=== PATIENT | female | born 1930 | race Caucasian/White ===

== ENCOUNTER 2017-06-15 12:45 | Emergency (ER) | payer MEDICARE ==
[2017-06-15 12:45] VITALS: BMI 22.3
--- NOTE | 2017-06-15 13:58 | C.PDOC ---
History Of Present Illness 86 yo female, presents sp fall. as per pt, states she tripped on bag, contrary to triage, pt denies any nausea vomiting cold sweats. info obtained via covered button maker box, and later tech bedside. pt states she tripped on a piece of luggage when someone came to door. pt c/o of pain to head, nose, and left arm, right knee. no other injury or complaint. Time Seen by Provider: 06/15/17 13:28 Chief Complaint (Nursing): Abdominal Pain Past Medical History Reviewed: Historical Data, Nursing Documentation, Vital Signs Vital Signs: Last Vital Signs Temp 97.9 F 06/15/17 16:00 Pulse 60 06/15/17 16:00 Resp 16 06/15/17 16:00 BP 102/69 06/15/17 16:00 Pulse Ox 96 06/15/17 23:30 - Medical History PMH: Arthritis, Fractures (left foot), HTN, Hypothyroidism Denies: Chronic Kidney Disease Surgical History: Cholecystectomy - [facility] Procedures INITIAL INSERT TRANS LEADS INTO [employer]EN[employer]ICLE (04/03/14) INITIAL INSERTION OF DUAL-CHAMBER DEVICE (04/03/14) VACCINATION NEC (04/03/14) Family History: States: Unknown Family Hx - Social History Hx Alcohol Use: No Hx Substance Use: No - Immunization History Hx Tetanus Toxoid Vaccination: No Hx Influenza Vaccination: Yes Hx Pneumococcal Vaccination: No Review Of Systems Except As Marked, All Systems Reviewed And Found Negative. Gastrointestinal: Positive for: Nausea. Negative for: Vomiting Musculoskeletal: Positive for: Arm Pain, Leg Pain Physical Exam - Physical Exam Appears: Well, No Acute Distress Skin: Normal Color, Warm, Dry Head: Normacephalic, Other ((+)hematoma to forehead/nose) Eye(s): bilateral: Normal Inspection, PERRL, EOMI Nose: Normal Throat: Normal Neck: Normal Cardiovascular: Rhythm Regular Respiratory: Normal Breath Sounds Gastrointestinal/Abdominal: Normal Exam Back: Normal Inspection Extremity: Tenderness ((+)left elbow, right knee), No Deformity, Swelling ((+) elbow, right knee) ED Course And Treatment O2 Sat by Pulse Oximetry: 96 Medical Decision Making Medical Decision Making: mechanical fall. - r/o fx. bleed xr shows elbow fracture. case discussed with dr lisa, request posterior splint outpt f/u. pt verbalizes feels comfortable with dc. pt again endorses "she tripped on luggage". Disposition - Disposition Referrals: [facility] [Outside] [facility] [Outside] [facility] [Outside] [facility] [Outside] Johanny Lisa MD [Staff Provider] - Disposition: HOME/ ROUTINE Disposition Time: 15:49 Condition: STABLE Additional Instructions: please see specialist. return to er with worsening symptoms or concerns. Prescriptions: Naproxen [Naprosyn] 500 mg PO BID PRN #14 tablet PRN Reason: Pain, Mild (1-3) Instructions: Elbow Fracture in Adults (ED) Forms: [employer] (Upper Sorbian) Print Language: PERSIAN - Clinical Impression Clinical Impression: Elbow fracture, Fall, Head injury
--- NOTE | 2017-06-15 14:51 | RAD ---
PROCEDURE: Radiographs of the left humerus. HISTORY: trauma COMPARISON: None. FINDINGS: BONES: A distal lateral humeral fracture not clearly depicted on this image note is made that the patient also has a subsequent elbow study likely a better depicting the fracture type and its characteristics para acromioclavicular joint space narrowing in osseous hypertrophy humeral head subcortical cystic changes. SOFT TISSUES: Soft tissue swelling surrounding the left elbow. OTHER FINDINGS: Partially visualize left pacemaker leads IMPRESSION: Distal lateral humeral fracture probably involving the capitellum.
--- NOTE | 2017-06-15 14:53 | RAD ---
PROCEDURE: Radiographs of the left elbow. HISTORY: trauma COMPARISON: No prior. FINDINGS: BONES: A left capitellar fracture with superior and anterior displacement of some of this fracture fragment is suspect. Elbow joint fracture extension JOINTS: Fracture extension to the joint SOFT TISSUES: Marked surrounding soft tissue swelling JOINT EFFUSION: Large anterior elbow joint effusion OTHER FINDINGS: None IMPRESSION: Displaced capitellar fracture with elbow joint extension. Large elbow joint effusion. Comments consider CT of the elbow for fracture mapping and full assessment of potential additional fracture fragments
--- NOTE | 2017-06-15 14:55 | RAD ---
PROCEDURE: Left Wrist Radiographs. HISTORY: trauma COMPARISON: None. FINDINGS: BONES: . No fracture. JOINTS: First carpal metacarpal joint space narrowing and radiocarpal joint space narrowing. No dislocation SOFT TISSUES: Normal. OTHER FINDINGS: None. IMPRESSION: No fracture or dislocation at wrist level. Degenerative joint space narrowing
--- NOTE | 2017-06-15 14:56 | RAD ---
PROCEDURE: Radiographs of the Left Forearm HISTORY: trauma COMPARISON: None available. TECHNIQUE: Frontal and lateral views obtained. FINDINGS: BONES: The lateral distal humeral patellar fracture with proximal and anterior fracture displacement is renoted. Elbow joint effusion here. No additional radial or ulnar fractures appreciated. JOINT SPACES: Unremarkable. OTHER FINDINGS: None. IMPRESSION: Capitellar fracture superior and anterior displacement. Fracture extension to the elbow joint.
--- NOTE | 2017-06-15 15:00 | RAD ---
PROCEDURE: Right Knee Radiographs. HISTORY: trauma COMPARISON: None. FINDINGS: BONES: . No fracture. Tibial spine spurring. JOINTS: Mild medial femoral tibial joint space narrowing -mild osteoarthrosis JOINT EFFUSION: None. OTHER FINDINGS: None. IMPRESSION: Mild senescent changes. No fracture or dislocation.
--- NOTE | 2017-06-15 15:02 | RAD ---
PROCEDURE: CHEST RADIOGRAPH, 1 VIEW HISTORY: chest pain COMPARISON: None available. FINDINGS: LUNGS: No interval infiltrate PLEURA: No pneumothorax or pleural fluid seen. CARDIOVASCULAR: Mild cardiomegaly. Two lead pacemaker device in place as before. Tortuous ectatic thoracic aorta - contour similar OSSEOUS STRUCTURES: Bilateral acromioclavicular and glenohumeral joint arthrosis. VISUALIZED UPPER ABDOMEN: Normal. OTHER FINDINGS: None. IMPRESSION: No active disease.
--- NOTE | 2017-06-15 15:04 | RAD ---
PROCEDURE: Radiographs of the pelvis. HISTORY: fall COMPARISON: None. FINDINGS: BONES: Pelvic Bones: Unremarkable. Hips: No fracture. Bilateral superolateral hip joint space narrowing with bilateral superior acetabular spurring -right greater than left. . JOINTS: Sacroiliac Joints: Unremarkable. Pubic Symphysis: Hypertrophic osseous arthrosis Left L4-5 facet hypertrophic arthrosis. OTHER FINDINGS: Multiple left gluteal injection granulomas Limited evaluation of the superior left sacral wing -cystic mottled appearance here noted either intrinsic to the sacral bone or 2 to overlying bowel gas and redundant rectosigmoid colon loops. IMPRESSION: No hip fracture. Bilateral hip arthrosis right greater
--- NOTE | 2017-06-15 15:26 | CT ---
PROCEDURE: CT HEAD WITHOUT CONTRAST. HISTORY: trauma COMPARISON: None available. TECHNIQUE: Axial computed tomography images were obtained through the head/brain without intravenous contrast. Radiation dose: Total exam DLP = 873.70 mGy-cm. This CT exam was performed using one or more of the following dose reduction techniques: Automated exposure control, adjustment of the mA and/or kV according to patient size, and/or use of iterative reconstruction technique. FINDINGS: HEMORRHAGE: No intracranial hemorrhage. BRAIN: Diffuse atrophy with prominence of the ventricles and sulci noted. No mass effect or edema. Thin curvilinear calcification along the inner table of the left inner table. Scattered periventricular and subcortical white matter hypodensities, which are nonspecific, but often seen with chronic microvascular ischemic disease. Please note that MRI with diffusion imaging is more sensitive in the detection of acute ischemic event. VENTRICLES: No hydrocephalus. CALVARIUM: No acute fracture. PARANASAL SINUSES: Unremarkable as visualized. No significant inflammatory changes. MASTOID AIR CELLS: Unremarkable as visualized. No inflammatory changes. OTHER FINDINGS: Small frontal scalp hematoma. IMPRESSION: Small frontal scalp hematoma. Generalized atrophy. Nonspecific white matter changes.
--- NOTE | 2017-06-15 15:49 | CT ---
CT maxillofacial bones without IV contrast Indication: Trauma Comparison: Head CT 06/15/17 Technique: Axial computed tomography images were obtained of the maxillofacial bones without the use of intravenous contrast. Coronal and sagittal reformatted images were generated and reviewed. This CT exam was performed using 1 or more of the falling dose reduction techniques: Automated exposure control, adjustment of the MAA and/or kV according to patient size, and/or use of iterative reconstruction technique. Radiation dose: Total exam DLP = 794.55 MGy-cm. Findings: The facial bones appear intact without acute displaced fracture. The orbits appear unremarkable. The temporomandibular joints appear located. The mastoid air cells appear clear. The paranasal sinuses appear clear without air-fluid levels. Small frontal scalp hematoma. Osseous demineralization. Multilevel degenerative changes of the cervical spine. Impression: No acute displaced fracture identified. Small frontal scalp hematoma.
[2017-06-15 16:17] VITALS: BP 102/69; PULSE 60; RESP 16; TEMP 97.9
[2017-06-15 23:31] VITALS: O2SAT 96
== END 2017-06-15 17:01 | disposition home or self-care (01) ==
LOC: C.ER 12:45
DX: S09.90XA Unspecified injury of head, initial encounter (principal); S42.402A Unspecified fracture of lower end of left humerus, initial encounter for closed fracture; W01.0XXA Fall on same level from slipping, tripping and stumbling without subsequent striking against object, initial encounter; Y93.89 Activity, other specified; Y92.89 Other specified places as the place of occurrence of the external cause; I10 Essential (primary) hypertension; Z23 Encounter for immunization

== ENCOUNTER 2017-06-24 17:49 | Emergency (ER) | payer MEDICARE ==
[2017-06-24 17:54] VITALS: BMI 24.2
[2017-06-24 18:50] LABS: BASO % 0.9 % (0.0-2.0); EOS # 0.1 K/uL (0.0-0.7); EOS % 2.4 % (0.0-4.0); HEMATOCRIT 29.3 % (34.0-47.0); LYMPH # 0.9 K/uL (1.0-4.3); LYMPH % 25.9 % (20.0-40.0); MEAN CELL VOLUME 94.8 fL (81.0-99.0); MEAN CORPUSCULAR HEMOGLOBIN 32.9 pg (27.0-31.0); MEAN CORPUSCULAR HGB CONC 34.7 g/dL (33.0-37.0); MEAN PLATELET VOLUME 7.9 fL (7.2-11.7); MONO # 0.4 K/uL (0.0-0.8); NRBC % 0.1 % (0.0-2.0); RED CELL DISTRIBUTION WIDTH 14.4 % (11.5-14.5); WHITE BLOOD COUNT 3.6 K/uL (4.8-10.8)
[2017-06-24 18:54] LABS: CHLORIDE 98 mmol/L (98-107); SODIUM 131 mmol/L (132-148)
[2017-06-24 18:55] LABS: POTASSIUM 4.2 mmol/L (3.6-5.2)
[2017-06-24 18:57] LABS: ALB/GLOB RATIO 1.1 (1.0-2.1); ALKALINE PHOSPHATASE 78 U/L (38-126); ALT/SGPT 21 U/L (9-52); AST/SGOT 21 U/L (14-36); BILIRUBIN,TOTAL 1.2 mg/dL (0.2-1.3); BLOOD UREA NITROGEN 18 mg/dL (7-17); CARBON DIOXIDE 23 mmol/L (22-30); GFR AFRICAN-AMERICAN 51; GLUCOSE,RANDOM 94 mg/dL (65-105); TOTAL PROTEIN 7.2 g/dL (6.3-8.3)
[2017-06-24 18:58] LABS: CALCIUM 8.6 mg/dl (8.6-10.4); RBC URINE 26 /hpf (0-3); TRANSITIONAL EPITHIAL < 1 /hpf (0-3); URINE BACTERIA FEW (<OCC); URINE BILIRUBIN NEGATIVE (NEGATIVE); URINE BLOOD 1+ (NEGATIVE); URINE CALCIUM OXALATE CRYSTALS OCC /hpf (<OCC); URINE COLOR Yellow (YELLOW); URINE GLUCOSE (UA) NORMAL (Normal); URINE KETONE NEGATIVE (NEGATIVE); URINE LEUKOCYTE ESTERASE 3+ Leu/uL (Negative); URINE PROTEIN NEGATIVE (NEGATIVE); URINE UROBILINOGEN NORMAL mg/dL (0.2-1.0); WBC URINE 272 /hpf (0-5)
[2017-06-24 19:29] LABS: THYROID STIMULATING HORMONE 2.55 mIU/L (0.46-4.68)
--- NOTE | 2017-06-24 19:47 | C.PDOC ---
History Of Present Illness 86 year old female presents to the ED for evaluation of generalized weakness associated with decreased PO intake and nausea which began around 2 days ago. She denies fever, chills, nausea, dysuria, hematuria. Time Seen by Provider: 06/24/17 18:20 Chief Complaint (Nursing): Weakness/Neurological Deficit History Per: Patient History/Exam Limitations: no limitations Onset/Duration Of Symptoms: Days (2) Current Symptoms Are (Timing): Still Present Seizure Or Post-ictal Symptoms: None Additional History Per: Patient Past Medical History Reviewed: Historical Data, Nursing Documentation, Vital Signs Vital Signs: Last Vital Signs Temp 97.8 F 06/24/17 20:24 Pulse 69 06/24/17 20:24 Resp 20 06/24/17 20:24 BP 118/70 06/24/17 20:24 Pulse Ox 98 06/24/17 20:24 - Medical History PMH: Arthritis, Fractures (left foot), HTN, Hypothyroidism Denies: Chronic Kidney Disease Surgical History: Cholecystectomy, Pacemaker - [facility] Procedures INITIAL INSERT TRANS LEADS INTO [employer]LE (04/03/14) INITIAL INSERTION OF DUAL-CHAMBER DEVICE (04/03/14) VACCINATION NEC (04/03/14) Family History: States: Unknown Family Hx - Social History Hx Alcohol Use: No Hx Substance Use: No - Immunization History Hx Tetanus Toxoid Vaccination: No Hx Influenza Vaccination: Yes (2017) Hx Pneumococcal Vaccination: No Review Of Systems Constitutional: Positive for: Weakness, Other (decreased PO intake ). Negative for: Fever, Chills Gastrointestinal: Positive for: Nausea. Negative for: Vomiting Genitourinary: Negative for: Dysuria, Hematuria Physical Exam - Physical Exam Appears: Non-toxic, No Acute Distress Skin: Normal Color, Warm, Dry Head: Atraumatic, Normacephalic Eye(s): bilateral: Normal Inspection Oral Mucosa: Moist Neck: Supple Chest: Symmetrical, No Deformity, No Tenderness Cardiovascular: Rhythm Regular, No Murmur Respiratory: Normal Breath Sounds, No Rales, No Rhonchi, No Wheezing Extremity: Normal ROM, Capillary Refill (less than 2 seconds ) Neurological/Psych: Oriented x3, Normal Speech, Normal Cognition Gait: Steady ED Course And Treatment - Laboratory Results Result Diagrams: 06/24/17 18:43 06/24/17 18:43 O2 Sat by Pulse Oximetry: 99 (on RA) Pulse Ox Interpretation: Normal Progress Note: labs, EKG, CXR ordered and reviewed. Patient received Macrobid PO. On reassessment, patient is resting comfortably, showing no signs of distress and is stable for discharge. Patient is advised to follow up with her PMD within 1-2 days for further evaluation. Disposition - Disposition Referrals: Christina Rolle, [Non-Staff] - Disposition: HOME/ ROUTINE Disposition Time: 19:30 Condition: IMPROVED Additional Instructions: Thank you for letting us take care of you today. Your provider was Dr. Mendoza. You were treated for urinary tract infection. The emergency medical care you received today was directed at your acute symptoms. If you were prescribed any medication, please fill it and take as directed. It may take several days for your symptoms to resolve. Return to the Emergency Department if your symptoms worsen, do not improve, or if you have any other problems. Please contact your doctor or call one of the physicians/clinics you have been referred to that are listed on the Patient Visit Information form that is included in your discharge packet. Bring any paperwork you were given at discharge with you along with any medications you are taking to your follow up visit. Our treatment cannot replace ongoing medical care by a primary care provider (PCP) outside of the emergency department. Thank you for allowing the [employer] [facility] team to be part of your care today. Follow up with your doctor in 2-3 days for re-evaluation and further management. Prescriptions: Nitrofurantoin Macrocrystals [Macrobid] 100 mg PO BID #10 cap Instructions: Urinary Tract Infection in Women (ED) Forms: [employer] (Austrian) - Clinical Impression Clinical Impression: UTI (urinary tract infection) - Scribe Statement The provider has reviewed the documentation as recorded by the Scribe (Jyoti Simpson) Provider Attestation: All medical record entries made by the Scribe were at my direction and personally dictated by me. I have reviewed the chart and agree that the record accurately reflects my personal performance of the history, physical exam, medical decision making, and the department course for this patient. I have also personally directed, reviewed, and agree with the discharge instructions and disposition.
[2017-06-24 20:25] VITALS: BP 118/70; PULSE 69; RESP 20; TEMP 97.8
[2017-06-25 00:27] VITALS: O2SAT 99
--- NOTE | 2017-06-25 08:15 | RAD ---
PROCEDURE: CHEST RADIOGRAPH, 1 VIEW HISTORY: r/o infiltrate COMPARISON: Portable chest 06/15/2017. FINDINGS: Bipolar permanent cardiac pacemaker again identified. LUNGS: Clear. PLEURA: No pneumothorax or pleural fluid seen. CARDIOVASCULAR: Stable cardiomediastinal silhouette. OSSEOUS STRUCTURES: No significant abnormalities. VISUALIZED UPPER ABDOMEN: Normal. OTHER FINDINGS: None. IMPRESSION: No definite interval acute cardiopulmonary is appreciable. Pacemaker again noted placed.
== END 2017-06-24 20:25 | disposition home or self-care (01) ==
LOC: C.ER 17:49
DX: N39.0 Urinary tract infection, site not specified (principal)

== ENCOUNTER 2017-07-05 18:14 | Emergency (ER) | payer MEDICARE ==
[2017-07-05 18:14] VITALS: BMI 24.2
[2017-07-05] MEDS ORDERED: Sodium Chloride 0.9% 1,000 ML IV ONE (19:16)
--- NOTE | 2017-07-05 19:16 | C.PDOC ---
History Of Present Illness 86 year old female who presents to the ER with a complaint of a dull, aching right flank pain radiating to the groin; associated with nausea and one episode of vomiting this morning. Patient reports she was recently seen by her PMD and treated for UTI. Denies fever or chills. Time Seen by Provider: 07/05/17 19:15 Chief Complaint (Nursing): Female Genitourinary History Per: Patient History/Exam Limitations: no limitations Onset/Duration Of Symptoms: Hrs Current Symptoms Are (Timing): Still Present Severity: Mild Pain Scale Rating Of: 4 Quality Of Discomfort: Dull, Aching Associated Symptoms: Nausea, Vomiting. denies: Fever, Chills Alleviating Factors: None Recent travel outside of the [place]: No Abnormal Vaginal Bleeding: No Past Medical History Reviewed: Historical Data, Nursing Documentation, Vital Signs Vital Signs: Last Vital Signs Temp 98.2 F 07/05/17 18:34 Pulse 60 07/05/17 20:50 Resp 18 07/05/17 20:50 BP 145/66 07/05/17 20:50 Pulse Ox 98 07/05/17 20:50 - Medical History PMH: Arthritis, Depression, Fractures (left foot), HTN, Hypothyroidism Surgical History: Cholecystectomy, Pacemaker - [facility] Procedures INITIAL INSERT TRANS LEADS INTO [employer] VENTRICLE (04/03/14) INITIAL INSERTION OF DUAL-CHAMBER DEVICE (04/03/14) VACCINATION NEC (04/03/14) Family History: States: No Known Family Hx - Social History Hx Alcohol Use: No Hx Substance Use: No - Immunization History Hx Tetanus Toxoid Vaccination: No Hx Influenza Vaccination: Yes (2016) Hx Pneumococcal Vaccination: No Review Of Systems Constitutional: Negative for: Fever, Chills Gastrointestinal: Positive for: Nausea, Vomiting Musculoskeletal: Positive for: Back Pain (right flank) Physical Exam - Physical Exam Appears: Non-toxic Skin: Warm, Dry Head: Normacephalic Oral Mucosa: Moist Chest: Symmetrical, No Tenderness Cardiovascular: Rhythm Regular Respiratory: No Rales, No Rhonchi, No Wheezing Gastrointestinal/Abdominal: Bowel Sounds (Good), Soft, No Tenderness Back: Other (Right flank tenderness) Extremity: Other (Cast over left arm) Neurological/Psych: Oriented x3 ED Course And Treatment - Laboratory Results Result Diagrams: 07/05/17 17:43 07/05/17 17:43 O2 Sat by Pulse Oximetry: 97 (Room air) Pulse Ox Interpretation: Normal Progress Note: Blood work and urinalysis ordered. IV fluids administered. Reevaluation Time: 22:35 Disposition Counseled Patient/Family Regarding: Studies Performed, Diagnosis, Need For Followup, Rx Given - Disposition Referrals: Rubén Padgett MD [Staff Provider] - Disposition: HOME/ ROUTINE Disposition Time: 19:16 Condition: FAIR Prescriptions: Ciprofloxacin [Cipro] 1 tab PO BID #14 tab Instructions: Urinary Tract Infection in Women (ED), Back Pain (ED), Back Exercises (ED) Forms: [employer] (Amharic) Print Language: HUNGARIAN - Clinical Impression Clinical Impression: Back pain, UTI (urinary tract infection) - Scribe Statement The provider has reviewed the documentation as recorded by the Scribe Fei Guaman All medical record entries made by the Scribe were at my direction and personally dictated by me. I have reviewed the chart and agree that the record accurately reflects my personal performance of the history, physical exam, medical decision making, and the department course for this patient. I have also personally directed, reviewed, and agree with the discharge instructions and disposition.
[2017-07-05 19:33] LABS: RBC URINE < 1 /hpf (0-3); TRANSITIONAL EPITHIAL < 1 /hpf (0-3); URINE BACTERIA RARE (<OCC); URINE BILIRUBIN NEGATIVE (NEGATIVE); URINE BLOOD NEGATIVE (NEGATIVE); URINE COLOR Yellow (YELLOW); URINE GLUCOSE (UA) NORMAL (Normal); URINE KETONE NEGATIVE (NEGATIVE); URINE LEUKOCYTE ESTERASE 1+ Leu/uL (Negative); URINE PROTEIN NEGATIVE (NEGATIVE); URINE UROBILINOGEN NORMAL mg/dL (0.2-1.0); WBC URINE 6 /hpf (0-5)
[2017-07-05 19:48] LABS: BASO # 0.1 K/uL (0.0-0.2); BASO % 1.1 % (0.0-2.0); EOS # 0.1 K/uL (0.0-0.7); EOS % 2.2 % (0.0-4.0); HEMATOCRIT 33.6 % (34.0-47.0); LYMPH # 1.3 K/uL (1.0-4.3); LYMPH % 24.1 % (20.0-40.0); MEAN CELL VOLUME 96.1 fL (81.0-99.0); MEAN CORPUSCULAR HEMOGLOBIN 32.6 pg (27.0-31.0); MEAN PLATELET VOLUME 8.5 fL (7.2-11.7); MONO # 0.5 K/uL (0.0-0.8); MONO % 8.7 % (0.0-10.0); RED CELL DISTRIBUTION WIDTH 14.9 % (11.5-14.5)
[2017-07-05 19:49] LABS: WHITE BLOOD COUNT 5.5 K/uL (4.8-10.8)
[2017-07-05 19:58] LABS: POTASSIUM 5.3 mmol/L (3.6-5.2)
[2017-07-05 19:59] LABS: BILIRUBIN,TOTAL 1.7 mg/dL (0.2-1.3)
[2017-07-05 20:00] LABS: ALB/GLOB RATIO 1.1 (1.0-2.1); CALCIUM 8.6 mg/dl (8.6-10.4); TOTAL PROTEIN 8.3 g/dL (6.3-8.3)
[2017-07-05 20:10] LABS: VENOUS BLOOD GAS PCO2 47 mmHg (40-60); VENOUS BLOOD PH 7.38 (7.32-7.43)
[2017-07-05] MEDS ORDERED: Iodixanol 320 MG/ML 100 ML BOTTLE IV ONE (20:46)
[2017-07-05 20:50] VITALS: RESP 18
--- NOTE | 2017-07-05 22:06 | CT ---
EXAM: CT Abdomen and Pelvis With Intravenous Contrast EXAM DATE/TIME: 07/05/2017 8:03 PM CLINICAL HISTORY: 86 years old, female; Pain; Abdominal pain; Flank; Right lower quadrant (rlq); Additional info: Right flank pain, HX of uti TECHNIQUE: Axial computed tomography images of the abdomen and pelvis with intravenous contrast. All CT scans at this facility use one or more dose reduction techniques, viz.: automated exposure control; ma/kV adjustment per patient size (including targeted exams where dose is matched to indication; i.e. head); or iterative reconstruction technique. Coronal and sagittal reformatted images were created and reviewed. CONTRAST: 100 mL of VISIPAQUE 320 administered intravenously. COMPARISON: There are no prior studies for comparison. FINDINGS: Lower thorax: Lung bases are hyperinflated. There is minimal scarring at the lung bases The heart is enlarged.There is streak artifact from pacemaker leads. Distal thoracic aorta is tortuous. There are vascular calcifications. There is a small hiatal hernia. ABDOMEN: Liver: unremarkable Gallbladder and bile ducts: Gallbladder is surgically absent.There is prominence of the common duct. Pancreas: Pancreas is mildly atrophic. Spleen: unremarkable Adrenals: unremarkable Kidneys and ureters: Kidneys are mildly atrophic with focal areas of scarring. There is a dystrophic calcification in the right kidney. There are bilateral renal cysts. There is no pelvocaliectasis or ureterectasis. Stomach and bowel: Stomach is almost completely empty. Rotation is normal. Small bowel is mildly distended with fluid and air. There is mild small bowel wall and fold thickening. There is no obstruction. There is mild terminal ileal wall thickening. Appendix is not visualized.There is no pericecal inflammation. Colon is incompletely distended which limits evaluation. Appendix: See above. PELVIS: Bladder: Bladder is partially distended. There is mild bladder wall thickening. Reproductive: Uterus is absent. There are no adnexal masses. ABDOMEN and PELVIS: Intraperitoneal space: Bones/joints: Bony structures are osteopenic. There are degenerative changes at all levels. There is compression fracture at L3. There is a convex left lumbar curve. Soft tissues: There is a small fat containing umbilical hernia. There is bruising in the soft tissues of the right hip. There are calcified granulomas in the buttocks. Vasculature: Aorta is mildly tortuous. There are vascular calcifications. Lymph nodes: There are no pathologically enlarged para-aortic nodes. IMPRESSION: Renal cysts and scarring, no obstructing renal or ureteral stones or hydronephrosis; bladder wall thickening, underdistention versus inflammation; nonvisualization the appendix with no CT findings of appendicitis; minimal bruising in the soft tissues at the right hip; possible enteritis, no bowel obstruction; age indeterminate compression fracture at L3
[2017-07-05 22:35] VITALS: O2SAT 97
[2017-07-05 22:45] VITALS: BP 126/77; PULSE 56; TEMP 97.7
== END 2017-07-05 22:46 | disposition home or self-care (01) ==
LOC: C.ER 18:14
DX: N39.0 Urinary tract infection, site not specified (principal); M54.9 Dorsalgia, unspecified
CPT/HCPCS: 74177; 80053; 81001; 82803; 83690; 85025; 96360; 99285; J7040; Q9967